=== PATIENT | female | born 1960 | race Caucasian/White ===

== ENCOUNTER 2019-06-12 00:06 | Emergency (ER) | payer SELFPAY ==
[~2019-06-12] VITALS: Ht 157.5 cm; Wt 45.4 kg
[2019-06-12 00:23] VITALS: BP 169/91
[2019-06-12] MEDS ORDERED: cefTRIAXone SOD 1,000 MG VL IM ONE (01:30)
== END 2019-06-12 02:04 | disposition home or self-care (01) ==
LOC: ER 00:10
DX: L03.115 Cellulitis of right lower limb (principal)
CPT/HCPCS: 96372; 99283; J0696

== ENCOUNTER 2019-06-13 13:34 | Emergency (ER) | payer SELFPAY ==
[~2019-06-13] VITALS: Ht 157.5 cm; Wt 44.6 kg
[2019-06-13 13:40] VITALS: BP 128/87
== END 2019-06-13 14:54 | disposition home or self-care (01) ==
LOC: ER 13:41
DX: L03.031 Cellulitis of right toe (principal); I10 Essential (primary) hypertension
CPT/HCPCS: 10060

== ENCOUNTER 2019-12-10 15:43 | Emergency (ER) | payer BC, MEDICAID ==
[~2019-12-10] VITALS: Ht 157.5 cm; Wt 44.0 kg
[2019-12-10 16:11] VITALS: BP 139/83
== END 2019-12-10 20:32 | disposition left against medical advice (07) ==
LOC: ER 15:43
DX: S09.90XA Unspecified injury of head, initial encounter (principal); Z53.21 Procedure and treatment not carried out due to patient leaving prior to being seen by health care provider; W22.8XXA Striking against or struck by other objects, initial encounter; Y93.89 Activity, other specified; Y99.8 Other external cause status; Y92.89 Other specified places as the place of occurrence of the external cause

== ENCOUNTER 2019-12-11 10:45 | Emergency (ER) | payer BC ==
[~2019-12-11] VITALS: Ht 157.5 cm; Wt 44.0 kg
[2019-12-11 10:54] VITALS: BP 141/98
== END 2019-12-11 12:07 | disposition left against medical advice (07) ==
LOC: ER 10:45
DX: S09.90XA Unspecified injury of head, initial encounter (principal); W01.0XXA Fall on same level from slipping, tripping and stumbling without subsequent striking against object, initial encounter; Y93.89 Activity, other specified; Y99.8 Other external cause status; Y92.89 Other specified places as the place of occurrence of the external cause
CPT/HCPCS: 70450

== ENCOUNTER 2025-03-29 16:22 | Emergency (ER) | payer OTHER, MEDICAID ==
[~2025-03-29] VITALS: Ht 157.5 cm; Wt 45.8 kg
--- NOTE | 2025-03-29 17:17 | ED.PDOC ---
Magdalene. trauma (HPI) HPI Comments This is a 64 year old female presenting to the ED with chief complaint of right knee and right-sided facial injury s/p fall yesterday. Patient reports that while walking, her sandle got caught on a metal grate in the floor, causing her to trip and fall forward. Patient relays that she hit the right side of her face and right knee in the fall, but is more concerned of her right knee due to the pain. Patient denies any LOC, dizziness, headache, active bleeding, nausea, or vomiting. 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 History Family History Family History: Reviewed,noncontributory to illness Social History Smoker: Cigarettes Alcohol: Denies ETOH Use Drugs: Denies Drug Use Lives In: Home Constitutional: denies: chills, diaphoresis, fatigue, fever, malaise, sweats, weakness, others EENTM: reports: others (Patient displays right-sided mild edema and ecchymosis with a an abrasion to the lateral aspect of the right eye and temporal region.); denies: blurred vision, double vision, ear bleeding, ear discharge, ear drainage, ear pain, ear ringing, eye pain, eye redness, hearing loss, mouth pain, mouth swelling, nasal discharge, nose bleeding, nose congestion, nose pain, photophobia, tearing, throat pain, throat swelling, voice changes Respiratory: denies: cough, hemoptysis, orthopnea, SOB at rest, shortness of breath, SOB with excertion, stridor, wheezing, others Cardiovascular: denies: chest pain, dizzy spells, diaphoresis, Dyspnea on exertion, edema, irregular heart beat, left arm pain, lightheadedness, palpitations, PND, syncope, others Gastrointestinal: denies: abdomen distended, abdominal pain, blood streaked bowels, constipated, diarrhea, dysphagia, difficulty swallowing, hematemesis, me meche, nausea, poor appetite, poor fluid intake, rectal bleeding, rectal pain, vomiting, others Genitourinary: denies: abnormal vagina bleeding, burning, dyspareunia, dysuria, flank pain, frequency, hematuria, incontinence, pain, , vagina discharge, urgency, others Neurological: denies: dizziness, fainting, headache, left sided numbness, left sided weakness, numbness, paresthesia, pre-existing deficit, right sided numbness, right sided weakness, seizure, speech problems, tingling, tremors, weakness, others Musculoskeletal: reports: others (Rt knee pain and swelling); denies: back pain, gout, joint pain, joint swelling, muscle pain, muscle stiffness, neck pain Integumetry: reports: bruises (To face); denies: change in color, change in hair/nails, dryness, laceration, lesions, lumps, rash, wounds, others Allergic/Immunocompromised: denies: Difficulty Healing, Frequent Infections, Hives, Itching, others Hematologic/Lymphatic: denies: anemia, blood clots, easy bleeding, easy bruising, swollen glands, others Endocrine: denies: excessive hunger, excessive sweating, excessive thirst, excessive urination, flushing, intolerance to cold, intolerance to heat, unexplained weight gain, unexplained weight loss, others Psychiatric: denies: anxiety, bipolar disorder, depression, hopeless, panic disorder, schizophrenia, sleepless, suicidal, others All Other Systems: Reviewed and Negative Physical Exam General Appearance: Moderate Distress ([id number] distress due to knee and face pain concerns. Patient declined the need for any pain medication while at the facility.), Normal HEENT: Pharynx Normal, TMs Normal, Other (Patient displays some mild edema and ecchymosis to lateral aspect of the right eye region in her around the temporal area. Small abrasion noted to the right-sided lateral forehead. No active bleed. Patient denies any visual changes.) Neck: Full Range of Motion, Non-Tender, Normal, Normal Inspection Respiratory: Chest Non-Tender, Lungs Clear, No Accessory Muscle Use, No Respiratory Distress, Normal Breath Sounds Cardiovascular: No Edema, No JVD, No Murmur, No Gallop, Normal Peripheral Pulses, Regular Rate/Rhythm Breast Exam: Deferred Gastrointestinal: No Organomegaly, Non Tender, No Pulsatile Mass, Normal Bowel Sounds, Soft Genitalia: Deferred Pelvic: Deferred Rectal: Deferred Extremities: Other ([id number] edema noted to the anterior aspect of the right knee. No crepitus appreciated. Moderate reduced range of motion. Distal neurovascularly intact. Patient is able to bear weight.) Neurologic: Alert, No Motor Deficits, Normal Affect, Normal Mood, No Sensory Deficits Cerebellar Function: Normal Reflexes: Normal Skin: Dry, Normal Color, Warm Lymphatic: No Adenopathy Was a procedure done? Was a procedure done?: No Differential Diagnosis Multiple Trauma: Fractures, Contusion X-Ray, Labs, Meds, VS Vital Signs Date Time Temp Pulse Resp B/P (MAP) Pulse Ox O2 Delivery O2 Flow Rate FiO2 03/29/25 17:19 97.7 98 18 142/88 (106) 96 97.7 X-Ray, Labs, Meds, VS Comment All studies performed the ED were evaluated by me personally. Patient's bone studies were unremarkable for any acute fractures of the orbit. Small fracture of the nasal bone was noted. Right knee was unremarkable for any acute fractures. Mild edema noted. Advised patient utilize pain medication as needed as well as ice therapy. Time of 1ST Reevaluation: 19:04 Reevaluation 1ST: Unchanged Consultation: PCP Patient Education/Counseling: Diagnosis, Treatment Family Education/Counseling: Diagnosis, Treatment, No Family Present Departure 1 Departure Time of Disposition: 19:04 Impression: Primary Impression: Nasal bone fracture Additional Impression: Contusion of right knee Disposition: 01 HOME / SELF CARE / HOMELESS Condition: Stable Additional Instructions: Advised pain medication as needed as well as ice therapy. e-Prescriptions Ibuprofen (Ibuprofen) 600 Mg Tab 1 TAB PO Q6HP PRN, #20 TAB Prov: INO LUCIA PAC 03/29/25 Discharged With: Self, Friend Critical Care Note Critical Care Time?: No Stability Stability form required: No Heart Score Heart Score: Heart Score Response (Comments) Value History N/A 0 EKG N/A 0 Age N/A 0 Risk Factors N/A 0 Troponin N/A 0 Total 0 I personally scribed for INO LUCIA PAC ([email or web address]) on 03/29/25 at 17:17. Electronically submitted by Esteban Simeon ([email or web address]). INO LUCIA PAC Mar 29, 2025 17:17
--- NOTE | 2025-03-29 18:16 | DVH ---
CLINICAL INDICATION: Right-sided facial trauma TECHNIQUE: 3 radiographic views of the facial bones were obtained. Comparison: None FINDINGS/IMPRESSION: There is acute appearing nasal bone fracture. Recommend correlation with point tenderness. The orbit al betancourt appear intact on radiograph. The visualized paranasal sinuses and mastoids are well aerated.
--- NOTE | 2025-03-29 18:31 | DVH ---
Indication: Trauma/fall Technique: 3 views of the right knee Comparison: None FINDINGS/IMPRESSION: No radiographic evidence for acute fracture or dislocation. There is mild tricompartmental degenerati ve joint disease. There is a small to moderate suprapatellar effusion. Prepatellar edema. Atherosc lerotic disease.
[2025-03-29] MEDS ORDERED: IBUP-1454 PO (19:05)
[2025-03-29 20:05] VITALS: BP 140/95; PULSE 98; RESP 18; TEMP 98.4; O2SAT 98
== END 2025-03-29 20:13 | disposition home or self-care (01) ==
LOC: ER 16:22
DX: S02.2XXA Fracture of nasal bones, initial encounter for closed fracture (principal); S80.01XA Contusion of right knee, initial encounter; I10 Essential (primary) hypertension; F17.210 Nicotine dependence, cigarettes, uncomplicated; Z98.890 Other specified postprocedural states; W18.09XA Striking against other object with subsequent fall, initial encounter; Y93.01 Activity, walking, marching and hiking; Y92.89 Other specified places as the place of occurrence of the external cause; Y99.8 Other external cause status
CPT/HCPCS: 70140; 73562

== ENCOUNTER 2025-06-19 12:01 | Emergency (ER) | payer MEDICAID, OTHER ==
[~2025-06-19] VITALS: Ht 157.5 cm; Wt 46.6 kg
[~2025-06-19 12:01] MED LIST: IBUP-1454 PO
--- NOTE | 2025-06-19 12:55 | DVH ---
CLINICAL INDICATION: HIP PAIN TECHNIQUE: 1 radiographic views of the pelvis and 2 views of the right hip were obtained. Comparison: None FINDINGS/IMPRESSION: There is no evidence of acute fracture or dislocation. The visualized joint space is well maintained. The alignment is anatomical. There is no radiopaque foreign body.
--- NOTE | 2025-06-19 13:20 | ED.PDOC ---
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 Denies any redness around the hip. 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 YARDER PUNCHER History Family History Family History: Reviewed,noncontributory to illness Social History Smoker: Cigarettes Alcohol: Denies ETOH Use Drugs: Denies Drug Use Lives In: Home All Other Systems: Reviewed and Negative (Per HPI) Physical Exam General Appearance: No Apparent Distress, Normal HEENT: Normal ENT Inspection, Pharynx Normal, TMs Normal Neck: Full Range of Motion, Non-Tender, Normal, Normal Inspection Respiratory: Chest Non-Tender, Lungs Clear, No Accessory Muscle Use, No Respiratory Distress, Normal Breath Sounds Cardiovascular: No Edema, No JVD, No Murmur, No Gallop, Normal Peripheral Pulses, Regular Rate/Rhythm Breast Exam: Deferred Gastrointestinal: No Organomegaly, Non Tender, No Pulsatile Mass, Normal Bowel Sounds, Soft Genitalia: Deferred Pelvic: Deferred Rectal: Deferred Extremities: No calf tenderness, Normal capillary refill, Normal inspection, Normal range of motion, Non-tender, No pedal edema Musculoskeletal : Location: Right Extremity Location: Hip (Normal on inspection.) Apperance: Normal Neurologic: Alert, 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 Was a procedure done?: No Differential Diagnosis EXT Differential Diagnosis: Fracture, Sprain, Arthritis X-Ray, Labs, Meds, VS Vital Signs Date Time Temp Pulse Resp B/P (MAP) Pulse Ox O2 Delivery O2 Flow Rate FiO2 06/19/25 13:39 97.2 99 16 182/105 (130) 98 97.2 06/19/25 12:02 98.4 120 18 189/116 99 98.4 Current Medications Medications (Trade) Dose Ordered Sig/Yolie Route Start Time Stop Time Status Last Admin Ketorolac Tromethamine (Toradol Injection) 60 mg ONCE ONCE IM 06/19/25 13:15 06/19/25 13:16 DC 06/19/25 13:26 X-Ray, Labs, Meds, VS Comment On reevaluation, patient had symptomatic improvement. Patient is stable for discharge at this time. The patient was prescribed prednisone, baclofen, Voltaren gel from her urgent care visit yesterday and patient was advised to diamond picker the medication today External notes reviewed. Test results and diagnostic imaging interpreted. All diagnostic findings, discharge care, education and instructions provided Follow-up with PCP in 2 to 3 days Patient verbalized understanding and agreed to treatment plan Vital signs stable, afebrile, no acute distress noted Patient ambulatory with strong steady gait Advised to return precautions for any new or worsening symptoms, return to ER immediately for re-evaluation Patient is aware that the purpose of this visit was for an acute medical emergency requiring emergent stabilization. Chronic conditions, including malignancies have not been ruled out. Patient is instructed to follow up with PCP as directed and discharge instructions for continued care and workup. If unable to arrange follow-up, patient is to return to the emergency department for reassessment. Patient (parent or legal guardian if applicable) was given verbal and written discharge instructions and acknowledges understanding. Time of 1ST Reevaluation: 13:00 Reevaluation 1ST: Improved Patient Education/Counseling: Diagnosis, Treatment Family Education/Counseling: Diagnosis, Treatment Departure 1 Departure Time of Disposition: 13:19 Impression: Primary Impression: Right hip pain Disposition: 01 HOME / SELF CARE / HOMELESS Condition: Stable Discharged With: Self Critical Care Note Critical Care Time?: No Stability Stability form required: No Heart Score Heart Score: Heart Score Response (Comments) Value History N/A 0 EKG N/A 0 Age N/A 0 Risk Factors N/A 0 Troponin N/A 0 Total 0 [email or web address] MEADOWS NP Jun 19, 2025 13:20
[2025-06-19] MEDS: KETOROLAC TROMETH 60MG/2ML VIAL IM ONE (13:26)
[2025-06-19 13:39] VITALS: BP 182/105; PULSE 99; RESP 16; TEMP 97.2; O2SAT 98
== END 2025-06-19 13:51 | disposition home or self-care (01) ==
LOC: ER 12:01
DX: M25.551 Pain in right hip (principal); I10 Essential (primary) hypertension; F17.210 Nicotine dependence, cigarettes, uncomplicated; Z79.899 Other long term (current) drug therapy
CPT/HCPCS: 73502; 96372; 99283; J1885